=== PATIENT | male | born 1970 | race Caucasian/White ===

== ENCOUNTER 2019-03-13 05:07 | Day surgery (SDC) | payer OTHER ==
[~2019-03-13] VITALS: Ht 180.3 cm; Wt 86.2 kg
[2019-03-13] MEDS ORDERED: ZYRTEC10 MG (05:36)
[2019-03-13] MEDS ORDERED: PHENOBARBITAL32.4 MG (05:38)
[2019-03-13] MEDS ORDERED: NORTRIPTYLINE H50 MG (05:38)
[2019-03-13] MEDS ORDERED: IBUPROFEN800 MG PO (05:38)
[2019-03-13] MEDS ORDERED: RANITIDINE HCL150 M1 (05:39)
[2019-03-13] MEDS ORDERED: DILANTIN 12525 MG/ML (05:39)
[2019-03-13] MEDS ORDERED: ULTRAM50 MG (05:40)
[2019-03-13 05:57] LABS: HEMATOCRIT 42.9 % (42.0-54.0); HEMOGLOBIN 14.8 g/dL (13.5-17.5); MCH 29.8 pg (26.0-34.0); MCHC 34.5 g/dL (31.0-37.0); MCV 86.3 fL (80.0-100.0); RBC 4.97 10x6/uL (4.20-6.10); RDW 13.4 % (11.5-14.5); WBC 8.1 10x3/uL (4.8-10.8)
[2019-03-13 06:09] VITALS: BP 131/92; Ht 180.3 cm; Wt 86.2 kg
[2019-03-13 06:13] LABS: ALBUMIN 3.6 g/dL (3.4-5.0); ALKALINE PHOSPHATASE 156 U/L (46-116); ALT (SGPT) 16 U/L (10-68); BILIRUBIN - TOTAL 0.19 mg/dL (0.2-1.3); CALC OSMOLALITY 279 mosm/kg (275-300); CALCIUM 8.3 mg/dL (8.5-10.1); CHLORIDE - SERUM 104 mmol/L (98-107); CREATININE - SERUM 0.9 mg/dL (0.6-1.3); GLUCOSE 88 mg/dL (74-106); POTASSIUM - SERUM 4.1 mmol/L (3.5-5.1); PROTEIN - SERUM 7.1 g/dL (6.4-8.2); SODIUM 142 mmol/L (136-145); UREA NITROGEN 8 mg/dL (7-18); eGFR NON AFRICAN AMERICAN > 90 mL/min (90-120)
--- NOTE | 2019-03-13 07:50 | NUR ---
PREPPED FROM UPPER THIGH TO TOES CIRCUMFERENTIALLY
--- NOTE | 2019-03-13 08:35 | NUR ---
CARE TO DEVON @[id number]
--- NOTE | 2019-03-13 09:19 | NUR ---
0912-REC'D FROM RR. AWAKE AND ALERT,DENIES PAIN.VSS.DRESSING TO LLE CDI,ICE PACK IN PLACE.CAP REFILL WNL,ABLE TO PALPATE STRONG REGULAR PEDAL PULSE.CORRECTIONAL OFFICERS AT BEDSIDE,CL IN EASY REACH.FULL LIQUID TRAY TO ROOM
--- NOTE | 2019-03-13 10:00 | NUR ---
0945-TOLERATED FULL LIQUID DIET. ABLE TO URINATE WITHOUT COMPLICATIONS. REMOVED IV FROM RIGHT HAND WITH CATH INTACT,DISPOSED INTO SHARPS. COVERED SITE WITH BANDAID. VSS.DRESSING TO LEFT LEG CDI. ABLE TO WIGGLE TOES,CAP REFILL WNL.STRONG REGULAR PEDAL PULSE
--- NOTE | 2019-03-13 10:10 | NUR ---
1010-DISCHARGE CRITERIA MET.REVIEWED POST OP INSTRUCTIONS WITH INMATE AND CO'S. VERBALIZED UNDERSTANDING WITHOUT QUESTIONS OR CONCERNS. ESCORTED OUT VIA W/C WITH ADC TO DRIVE
--- NOTE | 2019-03-13 10:38 | OP ---
PATIENT NAME: ALESSANDRO DODGE MEDICAL RECORD: [id number] :66 LOCATION:[facility] ADMISSION DATE: SURGEON: GIULIANO BUI DO DATE OF OPERATION: 03/13/2019 PROCEDURE PERFORMED: Left knee arthroscopy, partial medial and partial lateral meniscectomy, and abrasion chondroplasty of the patella. PREOPERATIVE DIAGNOSIS: Left knee medial meniscal tear. POSTOPERATIVE DIAGNOSES: Left knee medial meniscal tear, lateral meniscal tear, and grade III chondromalacia of the patella. INDICATIONS: Mr. Dodge is a 48-year-old inmate, who has had left knee pain for quite some time, is catching, popping and locking. He is tired of dealing with it and got an MRI, which showed a medial meniscal tear. I informed him of the risks including infection, bleeding, damage to nerves and vessels, need for further surgery, retear of the meniscus, continued symptoms, continued pain, and the benefits of relief of pain and no more catching or locking or popping in the knee. He was okay with that and signed the consent. SURGEON: Giuliano Bui DO DESCRIPTION OF PROCEDURE: The patient was taken to the operative suite, laid in supine position, given general anesthetic, given 2 grams of Ancef preoperatively. LMA was placed. The left lower extremity was then prepped and draped in sterile fashion. A time-out was performed. Everyone was in agreement with the correct site, side, patient, and procedure. Procedure was then began with injecting 5 mL of 0.25% Marcaine with epinephrine into the medial and lateral portal sites of the anterior knee, 2.5 mL each. The 11 blade scalpel was then used to establish the lateral portal. The scope was then entered into the knee. In the suprapatellar pouch, no loose body was seen in that. Chondromalacia grade III was seen on the patella. There were no loose body seen in the lateral or medial gutters. The knee was then brought from extension into flexion and the medial compartment was entered. The medial portal was then established with an 18-gauge spinal needle and 11-blade scalpel and a trocar was entered in the knee. Probe was then brought in and the medial meniscal tear was seen. The middle third to middle half of the medial meniscus was torn to the posterior horn. This was trimmed out with a biter and trimmed back with a shaver to a stable point. Once this was to a stable point, it was probed to ensure that it hopefully would not tear more as it was a stable point. The ACL was then checked and seen to be in good position. The lateral compartment was then entered and lateral meniscal tear was seen just on the inner fibers of the middle portion of it. This was trimmed out with a biter and shaver. Once that was back to a stable point, there was no chondromalacia seen in the medial or lateral compartments and then the chondroplasty of the patella was done with a shaver. The knee was brought into extension. Once the cartilage was trimmed back to a stable point there on the patella, the water was turned off, suction was turned on and all of the excess fluid was removed from the knee. The portal sites were then closed with 4-0 Monocryl in an inverted interrupted fashion. Steri-Strips, Adaptic, 4 x 4's, ABD, Webril, Anibal wrap. MICHAELA hose stockinette was then placed up to the knee. The patient was awakened and taken to recovery in stable condition. BLOOD LOSS: Minimal. OPERATIVE REPORT [id number] ALESSANDRO DODGE COMPLICATIONS: None. TRANSINT:[id number] Voice Confirmation ID: [id number] DOCUMENT ID: [id number] GIULIANO BUI DO at 1038 CC: [id number] DICTATION DATE: 03/13/19 08 MEDICAL ASSISTANT SECRETARY: 03/13/19 1014 [facility] 03/13/19 [id number] [place] [address]
== END 2019-03-13 10:10 | disposition home or self-care (01) ==
LOC: D.OPS 05:07
PROVIDERS: Anesthesiology; ATTEND Orthopaedic Surgery
DX: S83.242A Other tear of medial meniscus, current injury, left knee, initial encounter (principal); X58.XXXA Exposure to other specified factors, initial encounter